=== PATIENT | female | born 1955 | race Caucasian/White ===

== ENCOUNTER → 2017-04-06 | Outpatient (CLI) | payer BC ==
--- NOTE | 2017-04-07 13:38 | MM ---
Reason for exam: screening (asymptomatic). Last mammogram was performed 1 year and 3 months ago. History: Patient is postmenopausal and is nulliparous. Family history of breast cancer in mother and breast cancer in sister. Excisional biopsy of the right breast, 2004. Physical Findings: A clinical breast exam by your physician is recommended on an annual basis and results should be correlated with mammographic findings. MG 3D Screening Mammo W/Cad Bilateral CC and MLO view(s) were taken. Prior study comparison: January 20, 2016, bilateral MG screening mammo w CAD. January 06, 2015, bilateral MG screening mammo w CAD. The breast tissue is heterogeneously dense. This may lower the sensitivity of mammography. Finding: There are typically benign round calcifications in both breasts. There is no discrete abnormality. ASSESSMENT: Benign, BI-RAD 2 RECOMMENDATION: Routine screening mammogram of both breasts in 1 year.
== END | disposition home or self-care (01) ==
LOC: RADMAMWWP 10:08
PROVIDERS: ATTEND Family Medicine
DX: Z12.31 Encounter for screening mammogram for malignant neoplasm of breast (principal)
CPT/HCPCS: 77063; G0202

== ENCOUNTER → 2017-12-18 | Outpatient (CLI) | payer BC ==
--- NOTE | 2017-12-18 20:05 | US ---
EXAMINATION TYPE: US thyroid st tissue head/neck DATE OF EXAM: 12/18/2017 COMPARISON: NONE CLINICAL HISTORY: 62-year-old female E03.9 Hypothyroidism. Patient on thyroid meds, patient states sh e had goiter removed in 1969 and she is unsure how much thyroid tissue is left. TECHNIQUE: Multiple sonographic images of the thyroid gland are obtained. FINDINGS: Right Lobe: appears surgically absent Left Lobe: Small measuring 2.4 x 0.5 x 0.9 cm Overall Parenchyma: heterogeneous Isthmus Thickness: 0.2 cm There is no discrete nodule seen. Bilateral neck scanned, no evidence of lymphadenopathy. IMPRESSION: Status post right thyroidectomy. The residual left lobe is small. No discrete nodule.
== END | disposition home or self-care (01) ==
LOC: RADUSWWP 15:29
PROVIDERS: ATTEND Family Medicine
DX: E03.9 Hypothyroidism, unspecified (principal); Z98.890 Other specified postprocedural states
CPT/HCPCS: 76536

== ENCOUNTER → 2018-06-28 | Outpatient (CLI) | payer MEDICARE ==
--- NOTE | 2018-06-29 11:40 | MM ---
Reason for exam: screening (asymptomatic). Last mammogram was performed 1 year and 3 months ago. History: Patient is postmenopausal and is nulliparous. Family history of breast cancer in mother and breast cancer in sister. Excisional biopsy of the right breast, 2004. Physical Findings: A clinical breast exam by your physician is recommended on an annual basis and results should be correlated with mammographic findings. MG 3D Screening Mammo W/Cad Bilateral CC and MLO view(s) were taken. Prior study comparison: April 06, 2017, bilateral MG 3d screening mammo w/cad. January 20, 2016, bilateral MG screening mammo w CAD. The breast tissue is heterogeneously dense. This may lower the sensitivity of mammography. There are benign appearing round calcifications bilaterally. There is no discrete abnormality. ASSESSMENT: Benign, BI-RAD 2 RECOMMENDATION: Routine screening mammogram of both breasts in 1 year.
== END | disposition home or self-care (01) ==
LOC: RADMAMWWP 11:48
PROVIDERS: ATTEND Family Medicine
DX: Z12.31 Encounter for screening mammogram for malignant neoplasm of breast (principal)
CPT/HCPCS: 77063; 77067

== ENCOUNTER → 2019-07-30 | Outpatient (CLI) | payer MEDICARE ==
--- NOTE | 2019-07-31 11:10 | MM ---
Reason for exam: screening (asymptomatic). Last mammogram was performed 1 year and 1 month ago. History: Patient is postmenopausal and is nulliparous. Family history of breast cancer in mother and breast cancer in sister. Excisional biopsy of the right breast, 2004. Physical Findings: A clinical breast exam by your physician is recommended on an annual basis and results should be correlated with mammographic findings. MG 3D Screening Mammo W/Cad Bilateral CC and MLO view(s) were taken. Prior study comparison: June 28, 2018, bilateral MG 3d screening mammo w/cad. April 06, 2017, bilateral MG 3d screening mammo w/cad. The breast tissue is heterogeneously dense. This may lower the sensitivity of mammography. There are benign appearing round calcifications bilaterally. There is no discrete abnormality. ASSESSMENT: Benign, BI-RAD 2 RECOMMENDATION: Routine screening mammogram of both breasts in 1 year.
== END | disposition home or self-care (01) ==
LOC: RADMAMWWP 07:04
PROVIDERS: ATTEND Family Medicine
DX: Z12.31 Encounter for screening mammogram for malignant neoplasm of breast (principal)
CPT/HCPCS: 77063; 77067

== ENCOUNTER → 2019-11-21 | Outpatient (CLI) | payer MEDICARE ==
--- NOTE | 2019-11-21 11:56 | USB ---
Reason for exam: clinical finding. History: Patient is postmenopausal and is nulliparous. Family history of breast cancer in mother and breast cancer in sister. Excisional biopsy of the right breast, 2004. Indicated problem(s): pain in the right breast. Physical Findings: Nurse Summary: all soft, nodular, movable, bilateral tenderness posterior nipples (nurse ts). US Breast RT Right complete breast ultrasound includes all four quadrants, the retroareolar region and axilla. Finding demonstrates a 7mm oval lymph node at the axilla, benign, non-enlarged. These results were verbally communicated with the patient and result sheet given to the patient on 11/21/19. ASSESSMENT: Benign, BI-RAD 2 RECOMMENDATION: Return to routine screening mammogram schedule for both breasts.
== END | disposition home or self-care (01) ==
LOC: RADUSWWP 10:04
PROVIDERS: ATTEND Nurse Practitioner Adult Health
DX: N64.4 Mastodynia (principal)

== ENCOUNTER → 2020-03-18 | Outpatient (CLI) | payer MEDICARE ==
--- NOTE | 2020-03-19 15:50 | ECHOF ---
Referral Reason:R06.00 Dyspnea MEASUREMENTS -------- HEIGHT: 172.7 cm WEIGHT: 95.3 kg BP: IVSd: 1.6 cm (0.6 - 1.1) LVIDd: 4.2 cm (3.9 - 5.3) LVPWd: 1.6 cm (0.6 - 1.1) IVSs: 2.3 cm LVIDs: 3.5 cm LVPWs: 1.5 cm LA Diam: 4.7 cm (2.7 - 3.8) RVIDd: 3.4 cm (< 3.3) Ao Diam: 3.4 cm (2.0 - 3.7) AV Cusp: 2.5 cm (1.5 - 2.6) EPSS: 0.5 cm RAP: 5.00 mmHg RVSP: 32.30 mmHg MV EF SLOPE: 88.07 mm/s (70 - 150) MV EXCURSION: 21.17 mm (> 18.000) FINDINGS -------- Atrial fibrillation. This was a technically difficult study with suboptimal views. The left ventricular size is normal. There is moderate concentric left ventricular hypertrophy. O verall left ventricular systolic function is normal with, an EF between 60 - 65 %. The right ventricle is mildly enlarged. The global wall thickness of the right ventricle is moderat ann-marie enlarged. The left atrium is markedly dilated. The right atrium was not well visualized. Interatrial and interventricular septum intact. There is mild aortic valve sclerosis. There is trace to mild mitral regurgitation. Mild tricuspid regurgitation present. Right ventricular systolic pressure is normal at < 35 mmHg. The pulmonic valve was not well visualized. The aortic root size is normal. Normal inferior vena cava with normal inspiratory collapse consistent with estimated right atrial pre ssure of 5 mmHg. The inferior vena cava is mildly dilated. Echo free space indicative of a pericardial fat pad. There is no pericardial effusion. CONCLUSIONS -------- 1. Atrial fibrillation. 2. This was a technically difficult study with suboptimal views. 3. The left ventricular size is normal. 4. There is moderate concentric left ventricular hypertrophy. 5. Overall left ventricular systolic function is normal with, an EF between 60 - 65 %. 6. The right ventricle is mildly enlarged. 7. The global wall thickness of the right ventricle is moderately enlarged. 8. The left atrium is markedly dilated. 9. The right atrium was not well visualized. 10. Interatrial and interventricular septum intact. 11. There is mild aortic valve sclerosis. 12. There is trace to mild mitral regurgitation. 13. Mild tricuspid regurgitation present. 14. Right ventricular systolic pressure is normal at < 35 mmHg. 15. The pulmonic valve was not well visualized. 16. The aortic root size is normal. 17. Normal inferior vena cava with normal inspiratory collapse consistent with estimated right atrial pressure of 5 mmHg. 18. The inferior vena cava is mildly dilated. 19. Echo free space indicative of a pericardial fat pad. 20. There is no pericardial effusion. NUCLEAR TECHNOLOGIST: Lianet Ariza RDCS
== END | disposition home or self-care (01) ==
LOC: RADECHMAIN 15:38
PROVIDERS: ATTEND Family Medicine
DX: I48.91 Unspecified atrial fibrillation (principal); I08.3 Combined rheumatic disorders of mitral, aortic and tricuspid valves
CPT/HCPCS: 93306

== ENCOUNTER → 2020-04-06 | Outpatient (CLI) | payer MEDICARE ==
[~2020-04-06] MED LIST: AMINOPHYLLINE 500 MG/20 ML VIAL IV ONE; REGADENOSON 0.4 MG/5 ML SYRINGE IV ONE
--- NOTE | 2020-04-06 12:14 | NM ---
EXAMINATION TYPE: NM stress lexiscan cardiolite DATE OF EXAM: 04/06/2020 COMPARISON: NONE HISTORY: Shortness of breath TECHNIQUE: After the intravenous administration of 9.8 mCi Tc 99m Sestamibi - Cardiolite resting SPE CT images acquired 60 minutes post injection. The patient received 0.4mg Lexiscan, 24.3 mCi Tc 99m Sestamibi - Stress images obtained [address] injection FINDINGS: Review of stress and rest SPECT images demonstrates fixed defect involving the anterior and anterosep brianna wall of the myocardium.. Gated analysis shows normal wall motion with an estimated left ventric ular ejection fraction of 74 %. IMPRESSION: 1. Fixed defect involving the anterior and anteroseptal myocardium correlate for previous myocardial infarction.
--- NOTE | 2020-04-06 12:38 | EST ---
EXERCISE STRESS AGE: 65 SEX: F HT: 5'8" WT: 205 lbs. PROTOCOL: Lexiscan Cardiolite. STAGE: DURATION OF EXERCISE: HEART RATE REST: 67 BLOOD PRESSURE REST: 111/85 MAXIMUM HEART RATE ACHIEVED: 105. MAXIMUM BLOOD PRESSURE: 116/71 85% MPHR: 130 100% MPHR: 153 METS: INDICATION: Chest pain. Heart rate 67, pressure is 111/85 mmHg. The baseline EKG showed what seems to be atrial fibrillation. 0.4 mg of Lexiscan over 15 seconds per protocol. Max heart rate was 105 beats per minute. Maximum pressure was 116/71 mmHg. Clinically the patient did not have no symptoms. The EKG did not show any significant ST or T-wave abnormalities concerning for ischemia. CONCLUSION: 1. Nondiagnostic electrocardiogram stress testing in response to Lexiscan. 2. Please follow up on the Cardiolite report on a separate report from Radiology Department. MMODL / IJN: [id number] /
== END | disposition home or self-care (01) ==
LOC: RADNMMAIN 08:03
PROVIDERS: ATTEND Nurse Practitioner Adult Health
DX: R06.00 Dyspnea, unspecified (principal)
CPT/HCPCS: 93017; 78452; A9500; J2785

== ENCOUNTER 2020-11-11 11:51 | Inpatient (IN) | payer MEDICARE ==
--- NOTE | 2020-11-11 12:24 | ED ---
General Adult HPI - General Chief complaint: Psychiatric Symptoms Stated complaint: Mental Health Time Seen by Provider: 11/11/20 12:00 Source: patient, EMS, RN notes reviewed, old records reviewed Mode of arrival: EMS Limitations: no limitations - History of Present Illness Initial comments: This is a 65-year-old female presents emergency department stating that since Monday she's been having more more thoughts of suicide and she was contemplating taking all of her medicine today so she decided to come in and get help. Patient states she's been relatively since September and it was increased about a month later to double the amount she thinks that some of that is part of the problem. Patient states that she has never attempted suicide in the past. Patient states no particular event seems to make her more depressed she states that she recently sold her house and is now living in a rented place so she doesn't have anything to do all day and that is making her more stress. Patient denies fever chills or cough. Patient denies any chest pain or difficulty breathing shortest breath. Patient denies any abdominal pain patient denies nausea vomiting diarrhea. - Related Data Home Medications Medication Instructions Recorded Confirmed ALPRAZolam [Xanax] 0.5 mg PO DAILY PRN 07/02/15 11/11/20 Pantoprazole Sodium 40 mg PO DAILY 07/02/15 11/11/20 Apixaban [Eliquis] 5 mg PO BID 11/11/20 11/11/20 Atorvastatin [Lipitor] 20 mg PO DAILY 11/11/20 11/11/20 Diltiazem Cd [Cardizem Cd] 120 mg PO DAILY 11/11/20 11/11/20 Levothyroxine Sodium 150 mcg PO DAILY 11/11/20 11/11/20 Lurasidone [Latuda] 80 mg PO DAILY 11/11/20 11/11/20 Metoprolol Succinate (ER) [Toprol 25 mg PO DAILY 11/11/20 11/11/20 Xl] Metoprolol Succinate [Toprol XL] 50 mg PO DAILY 11/11/20 11/11/20 Triamterene-Hctz 37.5-25Mg 1 tab PO DAILY 11/11/20 11/11/20 [Maxzide 37.5-25] rOPINIRole HCL [Requip] 0.25 mg PO HS 11/11/20 11/11/20 Allergies Allergy/AdvReac Type Severity Reaction Status Date / Time No Known Allergies Allergy Verified 11/11/20 12:46 Review of Systems ROS Statement: Those systems with pertinent positive or pertinent negative responses have been documented in the HPI. ROS Other: All systems not noted in ROS Statement are negative. Past Medical History Past Medical History: GERD/Reflux, Hyperlipidemia, Hypertension, Osteoarthritis (OA), Thyroid Disorder Additional Past Medical History / Comment(s): ENLARGED HEART, MURMUR, PALPITATIONS,VARICOSE VEINS, History of Any Multi-Drug Resistant Organisms: None Reported Additional Past Surgical History / Comment(s): thyroid goiter, MANIPULATION LT SHOULDER, D&C 22 YEARS AGO Past Anesthesia/Blood Transfusion Reactions: Postoperative Nausea & Vomiting (PONV) Additional Past Anesthesia/Blood Transfusion Reaction / Comment(s): CLAUSTERPHOBIA Past Psychological History: Anxiety, Depression Smoking Status: Former smoker Past Alcohol Use History: None Reported Past Drug Use History: Prescription Drug Abuse - Past Family History Father Family Medical History: Cancer, COPD Mother Family Medical History: Cancer Additional Family Medical History / Comment(s): BREAST General Exam - General Exam Comments Initial Comments: GENERAL: Patient is well-developed and well-nourished. Patient is nontoxic and well- hydrated and is in mild distress. ENT: Neck is soft and supple. No significant lymphadenopathy is noted. Oropharynx is clear. Moist mucous membranes. Neck has full range of motion without eliciting any pain. EYES: The sclera were anicteric and conjunctiva were pink and moist. Extraocular movements were intact and pupils were equal round and reactive to light. Eyelids were unremarkable. PULMONARY: Unlabored respirations. Good breath sounds bilaterally. No audible rales rhonchi or wheezing was noted. CARDIOVASCULAR: There is a regular rate and rhythm without any murmurs gallops or rubs. ABDOMEN: Soft and nontender with normal bowel sounds. SKIN: Skin is clear with no lesions or rashes and otherwise unremarkable. NEUROLOGIC: Patient is alert and oriented x3. Cranial nerves II through XII are grossly intact. Motor and sensory are also intact. Normal speech, volume and content. Symmetrical smile. MUSCULOSKELETAL: Normal extremities with adequate strength and full range of motion. LYMPHATICS: No significant lymphadenopathy is noted PSYCHIATRIC: She states she suicidal. Limitations: no limitations Course Vital Signs 11/11/20 11:57 Temperature 98 F Pulse Rate 78 Respiratory 18 Rate Blood Pressure 137/88 O2 Sat by Pulse 96 Oximetry Medical Decision Making - Medical Decision Making EPS evaluated the patient and determined the patient needed to be admitted. - Lab Data Lab Results 11/11/20 Range/Units 12:23 Urine Opiates Screen Not Detected (NotDetected) Ur Oxycodone Screen Not Detected (NotDetected) Urine Methadone Screen Not Detected (NotDetected) Ur Propoxyphene Screen Not Detected (NotDetected) Ur Barbiturates Screen Not Detected (NotDetected) U Tricyclic Antidepress Not Detected (NotDetected) Ur Phencyclidine Scrn Not Detected (NotDetected) Ur Amphetamines Screen Not Detected (NotDetected) U Methamphetamines Scrn Not Detected (NotDetected) U Benzodiazepines Scrn Not Detected (NotDetected) Urine Cocaine Screen Not Detected (NotDetected) U Marijuana (THC) Screen Detected H (NotDetected) Disposition Clinical Impression: Depression, Suicidal ideation Disposition: ADMITTED IP TO THIS HOSP Referrals: Antwon Duff MD [Primary Care Provider] - 1-2 days Time of Disposition: 14:37
[2020-11-11 12:50] LABS: Amphetamine Screen,Urine Not Detected (NotDetected); Barbiturate Screen,Urine Not Detected (NotDetected); Benzodiazepines Screen,Urine Not Detected (NotDetected); Cocaine Screen,Urine Not Detected (NotDetected); Methadone Screen, Urine Not Detected (NotDetected); Opiate Screen,Urine Not Detected (NotDetected); Oxycodone Screen, Urine Not Detected (NotDetected); Phencyclidine Screen,Urine Not Detected (NotDetected); Tricyclic Antidepressant,Urine Not Detected (NotDetected); Urn Cannabinoid Scrn Detected (NotDetected)
[2020-11-11] MEDS ORDERED: ONDANSETRON ODT 4 MG TAB PO STA (13:22)
[2020-11-11] MEDS ORDERED: MAGNESIUM HYDROXIDE 2,400 MG/10 ML CUP PO PRN (15:26)
[2020-11-11] MEDS ORDERED: LORazepam 1 MG TAB PO PRN (15:26)
[2020-11-11] MEDS ORDERED: HALOPERIDOL LACTATE 5 MG/ML 1 ML VIAL IM PRN (15:30)
[2020-11-11] MEDS: MAG HYDROX/AL HYDROX/SIMETH 30 ML CUP PO PRN (19:37)
[2020-11-11] MEDS: PANTOPRAZOLE 40 MG TABLET PO SCH (19:50)
--- NOTE | 2020-11-11 20:09 | P.CONS ---
History of Present Illness - Reason for Consult Consult date: 11/11/20 Medical management Requesting physician: Antwon Duff - Chief Complaint Suicidal thoughts - History of Present Illness Consultation: This is a pleasant 65-year-old patient of Dr. Antwon Duff. For last 56 days she's been having more positive suicide and contemplating taking all of her medications and decided to come to the ER to get some help. She has been having bouts of more severe depression. Chronic stable medical conditions include cardiac hypertension hyperlipidemia osteophyte arthritis hypothyroid varicose veins.. Does not sleep well. Occasional constipation. No fever no chills. No respiratory symptoms. Review of systems: GEN.: None EYES: None HEENT: None NECK: None RESPIRATORY: None CARDIOVASCULAR: None GASTROINTESTINAL: Occasional constipation GENITOURINARY: None MUSCULOSKELETAL: None LYMPHATICS: None HEMATOLOGICAL: None PSYCHIATRY: Anxiety depression NEUROLOGICAL: Insomnia Past medical history to include: GERD, hypertension, hyperlipidemia, osteophyte is, hypothyroid, varicose veins anxiety depression Social history: Lives with . No alcohol. She has been eating THC gummies about 3 times a week. Physical examination: VITAL SIGNS: 98.1, 92, 18, 108/81, 99% room air GENERAL: BMI 32.3, sitting up in a chair, comfortable. EYES: Pupils equal. Conjunctiva normal. HEENT: External appearance of nose and ears normal, oral cavity grossly normal. NECK: JVD not raised; masses not palpable. HEART: First and second heart sounds are normal; no edema. LUNGS: Respiratory rate normal; clear to auscultation. ABDOMEN: Soft, nontender, liver spleen not palpable, no masses palpable. PSYCH: [Alert and oriented x3; mood and affect anxious l. NEUROLOGICAL: Cranial nerves grossly intact; no facial asymmetry, power and se nsation grossly intact. LYMPHATICS: No lymph nodes palpable in the axilla and neck INVESTIGATIONS, reviewed in the clinical context: Urine drug screen positive for marijuana. Coronavirus [PCR]-not detected Assessment: -Obesity BMI 32.3 -GERD -Essential hypertension -Hyperlipidemia -Primary osteoarthritis -Varicose veins -Major depression recurrent with acute episode -Insomnia secondary to multiple medical problems -Restless leg syndrome Plan: Home medications to be resumed. Including patient's eliquis. Hopefully with the new medications she'll receive from psychiatry to help her sleep better. Care was discussed with the patient questions answered. Patient should follow- up with family doctor per discharge. Thank you Dr. Armendariz Past Medical History Past Medical History: GERD/Reflux, Hyperlipidemia, Hypertension, Osteoarthritis (OA), Thyroid Disorder Additional Past Medical History / Comment(s): ENLARGED HEART, MURMUR, PALPITATIONS,VARICOSE VEINS, History of Any Multi-Drug Resistant Organisms: None Reported Additional Past Surgical History / Comment(s): thyroid goiter, MANIPULATION LT SHOULDER, D&C 22 YEARS AGO Past Anesthesia/Blood Transfusion Reactions: Postoperative Nausea & Vomiting (PONV) Additional Past Anesthesia/Blood Transfusion Reaction / Comm: CLAUSTERPHOBIA Past Psychological History: Anxiety, Depression Smoking Status: Former smoker Past Alcohol Use History: None Reported Past Drug Use History: Prescription Drug Abuse - Past Family History Father Family Medical History: Cancer, COPD Mother Family Medical History: Cancer Additional Family Medical History / Comment(s): BREAST Medications and Allergies Home Medications Medication Instructions Recorded Confirmed Type ALPRAZolam [Xanax] 0.5 mg PO DAILY PRN 07/02/15 11/11/20 History Pantoprazole Sodium 40 mg PO DAILY 07/02/15 11/11/20 History Apixaban [Eliquis] 5 mg PO BID 11/11/20 11/11/20 History Atorvastatin [Lipitor] 20 mg PO DAILY 11/11/20 11/11/20 History Diltiazem Cd [Cardizem Cd] 120 mg PO DAILY 11/11/20 11/11/20 History Levothyroxine Sodium 150 mcg PO DAILY 11/11/20 11/11/20 History Lurasidone [Latuda] 80 mg PO DAILY 11/11/20 11/11/20 History Metoprolol Succinate (ER) [Toprol 25 mg PO DAILY 11/11/20 11/11/20 History Xl] Metoprolol Succinate [Toprol XL] 50 mg PO DAILY 11/11/20 11/11/20 History Triamterene-Hctz 37.5-25Mg 1 tab PO DAILY 11/11/20 11/11/20 History [Maxzide 37.5-25] rOPINIRole HCL [Requip] 0.25 mg PO HS 11/11/20 11/11/20 History Allergies Allergy/AdvReac Type Severity Reaction Status Date / Time No Known Allergies Allergy Verified 11/11/20 12:46 Physical Exam Vitals: Vital Signs Temp Pulse Pulse Resp BP BP Pulse Ox 11/11/20 18:28 98.1 F 11/11/20 16:53 97.2 F L 92 18 108/81 11/11/20 16:14 97.8 F 79 18 99/72 99 11/11/20 11:57 98 F 78 18 137/88 96 Intake and Output 11/11/20 11/11/20 11/11/20 06:59 14:59 22:59 Other: Weight 90.718 kg 96.218 kg Results Labs: Abnormal Lab Results - Last 24 Hours (Table) 11/11/20 Range/Units 12:23 U Marijuana (THC) Screen Detected H (NotDetected)
[2020-11-11] MEDS: APIXABAN 5 MG TAB PO SCH (21:04)
[2020-11-12] MEDS: LEVOTHYROXINE 75 MCG TAB PO SCH (06:39)
[2020-11-12 06:57] VITALS: RESP 16
[2020-11-12] MEDS ORDERED: PANTOPRAZOLE 40 MG TABLET PO SCH (07:30)
[2020-11-12 07:43] LABS: Basophils # (A) 0.1 k/uL (0-0.2); Basophils % (A) 1 %; Eosinophils # (A) 0.3 k/uL (0-0.7); Eosinophils % (A) 3 %; HCT 45.5 % (34.0-46.0); HGB 15.6 gm/dL (11.4-16.0); Lymphocytes # (A) 2.2 k/uL (1.0-4.8); Lymphocytes % (A) 22 %; MCH 30.3 pg (25.0-35.0); MCHC 34.4 g/dL (31.0-37.0); MCV 88.1 fL (80.0-100.0); Mean Platelet Volume 7.8; Monocytes # (A) 0.9 k/uL (0-1.0); Monocytes % (A) 9 %; Neutrophils # (A) 6.5 k/uL (1.3-7.7); Neutrophils % (A) 64 %; Platelet Count 261 k/uL (150-450); RBC 5.16 m/uL (3.80-5.40); RDW 12.9 % (11.5-15.5); WBC 10.2 k/uL (3.8-10.6)
[2020-11-12] MEDS: METOPROLOL SUCCINATE (ER) 50 MG TAB.ER.24H PO SCH (07:55)
[2020-11-12] MEDS: ATORVASTATIN 20 MG TAB PO SCH (07:55)
[2020-11-12] MEDS: PANTOPRAZOLE 40 MG TABLET PO SCH (07:55)
[2020-11-12] MEDS: METOPROLOL SUCCINATE (ER) 25 MG TAB.ER.24H PO SCH (07:55)
[2020-11-12] MEDS: DILTIAZEM CD 120 MG CAP.ER.24H PO SCH (07:55)
[2020-11-12] MEDS: APIXABAN 5 MG TAB PO SCH ×2 (07:55→20:39)
[2020-11-12] MEDS: TRIAMTERENE-HCTZ 37.5-25MG 1 EACH TAB PO SCH (07:56)
[2020-11-12 08:07] LABS: Albumin 4.2 g/dL (3.5-5.0); Calcium 9.5 mg/dL (8.4-10.2); Potassium 4.4 mmol/L (3.5-5.1); Total Bilirubin 1.2 mg/dL (0.2-1.3)
[2020-11-12] MEDS ORDERED: SERTRALINE 50 MG TAB PO STA (11:08)
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
[2020-11-12] MEDS: MAG HYDROX/AL HYDROX/SIMETH 30 ML CUP PO PRN (14:32)
[2020-11-12 20:09] LABS: Hemoglobin A1C 5.8 % (4.0-6.0)
[2020-11-12] MEDS ORDERED: MIRTAZAPINE 15 MG TAB PO SCH (21:00)
[2020-11-12 21:44] LABS: Appearance,Urine Clear (Clear); Bilirubin,Urine Negative (Negative); Blood,Urine Negative (Negative); Color,Urine Yellow; Glucose,Urine (UA) Negative (Negative); Hyaline Casts,Urine 1 /lpf (0-2); Ketones,Urine Negative (Negative); Leukocyte Esterase,Urine Trace (Negative); Mucus,Urine Rare /hpf; Nitrite,Urine Negative (Negative); PH, Urine 5.5 (5.0-8.0); Protein,Urine Negative (Negative); RBC,Urine 1 /hpf (0-5); Specific Gravity,Urine 1.018 (1.001-1.035); Urobilinogen,Urine <2.0 mg/dL (<2.0); WBC,Urine 1 /hpf (0-5)
[2020-11-12] MEDS: ACETAMINOPHEN TAB 325 MG TAB PO PRN (23:24)
--- NOTE | 2020-11-12 23:56 | P.PN ---
Progress Note - Text Progress Note Date: 11/12/20 Patient lab work for thyroid function was noted. No induration of the present time. Patient have repeat thyroid function test done in about 4 weeks' time. Patient is clinically not hyperthyroid.
[2020-11-13 06:17] VITALS: BP 132/60; PULSE 70; TEMP 97.5
[2020-11-13] MEDS: LEVOTHYROXINE 75 MCG TAB PO SCH (06:19)
[2020-11-13] MEDS: PANTOPRAZOLE 40 MG TABLET PO SCH (07:47)
[2020-11-13] MEDS: APIXABAN 5 MG TAB PO SCH (07:48)
[2020-11-13] MEDS: METOPROLOL SUCCINATE (ER) 50 MG TAB.ER.24H PO SCH (07:48)
[2020-11-13] MEDS: ATORVASTATIN 20 MG TAB PO SCH (07:48)
[2020-11-13] MEDS: METOPROLOL SUCCINATE (ER) 25 MG TAB.ER.24H PO SCH (07:49)
[2020-11-13] MEDS: TRIAMTERENE-HCTZ 37.5-25MG 1 EACH TAB PO SCH (07:49)
[2020-11-13] MEDS: DILTIAZEM CD 120 MG CAP.ER.24H PO SCH (07:49)
[2020-11-13] MEDS ORDERED: SERTRALINE 50 MG TAB PO SCH (09:00)
[2020-11-13] MEDS: ACETAMINOPHEN TAB 325 MG TAB PO PRN (09:41)
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
== END 2020-11-13 10:38 | disposition home or self-care (01) | DRG 885 ==
LOC: EC 11:51 → 3MHU 15:20
PROVIDERS: ADMIT Psychiatry & Neurology Psychiatry; ATTEND Psychiatry & Neurology Psychiatry
DX: F33.2 Major depressive disorder, recurrent severe without psychotic features (principal); R45.851 Suicidal ideations; I11.9 Hypertensive heart disease without heart failure; F41.9 Anxiety disorder, unspecified; Z20.822 Contact with and (suspected) exposure to COVID-19; E78.5 Hyperlipidemia, unspecified; E03.9 Hypothyroidism, unspecified; E66.9 Obesity, unspecified; Z68.32 Body mass index [BMI] 32.0-32.9, adult; G25.81 Restless legs syndrome; G47.00 Insomnia, unspecified; K59.00 Constipation, unspecified; K21.9 Gastro-esophageal reflux disease without esophagitis; M19.91 Primary osteoarthritis, unspecified site; M81.0 Age-related osteoporosis without current pathological fracture; I83.90 Asymptomatic varicose veins of unspecified lower extremity; Z79.01 Long term (current) use of anticoagulants; Z79.890 Hormone replacement therapy; Z79.899 Other long term (current) drug therapy; Z87.891 Personal history of nicotine dependence; Z62.810 Personal history of physical and sexual abuse in childhood; Z87.39 Personal history of other diseases of the musculoskeletal system and connective tissue; Z82.5 Family history of asthma and other chronic lower respiratory diseases; Z80.3 Family history of malignant neoplasm of breast
CPT/HCPCS: 80053; 80061; 80306; 81001; 82075; 83036; 84439; 84443; 85025; 87635; 99285

== ENCOUNTER → 2021-01-26 | Outpatient (CLI) | payer MEDICARE ==
--- NOTE | 2021-01-28 10:47 | MM ---
Reason for exam: screening (asymptomatic). Last mammogram was performed 1 year and 6 months ago. History: Patient is postmenopausal and is nulliparous. Family history of breast cancer in mother and breast cancer in sister. Excisional biopsy of the right breast, 2004. Physical Findings: A clinical breast exam by your physician is recommended on an annual basis and results should be correlated with mammographic findings. MG 3D Screening Mammo W/Cad Bilateral CC and MLO view(s) were taken. Prior study comparison: July 30, 2019, bilateral MG 3d screening mammo w/cad. June 28, 2018, bilateral MG 3d screening mammo w/cad. There are scattered fibroglandular densities. Focal asymmetry right CC view. ASSESSMENT: Incomplete: need additional imaging evaluation, BI-RAD 0 RECOMMENDATION: Special view mammogram of the right breast. If lesion persists on supplemental views, image directed ultrasound is recommended. [facility] will attempt to contact patient to return for supplemental views and ultrasound if indicated.
== END | disposition home or self-care (01) ==
LOC: RADMAMWWP 11:24
PROVIDERS: ATTEND Family Medicine
DX: Z12.31 Encounter for screening mammogram for malignant neoplasm of breast (principal); Z80.3 Family history of malignant neoplasm of breast; Z78.0 Asymptomatic menopausal state
CPT/HCPCS: 77063; 77067

== ENCOUNTER → 2021-02-08 | Outpatient (CLI) | payer MEDICARE ==
--- NOTE | 2021-02-09 08:11 | MM ---
Reason for exam: additional evaluation requested from abnormal screening. Last mammogram was performed less than 1 month ago. History: Patient is postmenopausal and is nulliparous. Family history of breast cancer in mother and breast cancer in sister. Excisional biopsy of the right breast, 2004. Physical Findings: Nurse did not find any significant physical abnormalities on exam. MG 3D Work Up W/Cad RT CC and MLO view(s) were taken of the right breast. Prior study comparison: January 26, 2021, bilateral MG 3d screening mammo w/cad. July 30, 2019, bilateral MG 3d screening mammo w/cad. The breast tissue is heterogeneously dense. This may lower the sensitivity of mammography. There is no discrete abnormality including area of concern. No significant new findings when compared with previous films. These results were verbally communicated with the patient and result sheet given to the patient on 02/08/21. ASSESSMENT: Negative, BI-RAD 1 RECOMMENDATION: Return to routine screening mammogram schedule for both breasts.
== END | disposition home or self-care (01) ==
LOC: RADMAMWWP 15:00
PROVIDERS: ATTEND Family Medicine
DX: R92.2 Inconclusive mammogram (principal)
CPT/HCPCS: 77065; G0279; 77061

== ENCOUNTER → 2022-01-31 | Outpatient (CLI) | payer MEDICARE ==
--- NOTE | 2022-01-31 16:11 | CT ---
EXAMINATION TYPE: CT chest wo con DATE OF EXAM: 01/31/2022 INDICATION: pulmonary nodule CT DLP: 685.12 mGy.cm Automated Exposure Control for Dose Reduction was Utilized. TECHNIQUE AND CONTRAST: CT scan of the chest without IV contrast administration. COMPARISON: CT dated 07/06/2016 FINDINGS: Stable few left lower lobe lung nodules measuring up to 3 mm, consistent with benign nodules. No othe r definite lung nodule identified. Prominent interstitial lung markings most evident in the left lowe r lobe, probably related to chronic pulmonary congestion. Unremarkable lungs otherwise. Patent central airways. No pleural or pericardial effusion. Severe card iomegaly with markedly left atrial dilatation and suspected left ventricular apical chronic infarct/a neurysm, please correlate with echocardiographic results. Extensive coronary and to a lesser extent arterial atherosclerotic calcifications. The pulmonary trun k measures 4.1 cm suggestive of pulmonary hypertension. No pathologically enlarged lymph nodes in the chest. CT scan of the abdomen is dictated separately. Osteopenia. No aggressive bone lesion. IMPRESSION: Stable few left lower lobe lung nodules measuring up to 3 mm consistent with benign nodules. No new o r progressive lung nodule identified. Severe cardiomegaly and other incidental findings as detailed a shahnaz. CT scan of the abdomen is dictated separately.
--- NOTE | 2022-01-31 21:38 | CT ---
EXAMINATION TYPE: CT abdomen pelvis w con DATE OF EXAM: 01/31/2022 COMPARISON: CT dated 07/06/2016 HISTORY: splenic artery aneurysm CT DLP: 1565.91 mGycm Automated exposure control for dose reduction was used. TECHNIQUE: Helical acquisition of images was performed from the lung bases through the pelvis. CONTRAST: Performed with Oral Contrast and with IV Contrast, patient injected with 80ml mL of Isovue 300. FINDINGS: LUNG BASES: CT scan of the chest is dictated separately. LIVER/GB: No definite hepatic focal lesion. Densities within the gallbladder likely representing chol elithiasis without convincing evidence of acute cholecystitis. PANCREAS: Fatty infiltration. SPLEEN: Unremarkable spleen. Redemonstration of the previously seen marginally calcified splenic miguel a ry aneurysm measuring up to 2.2 cm, stable. The more distal noncalcified aneurysm is also stable mabel uring 14 mm. ADRENALS: No significant abnormality is seen. KIDNEYS: Nonvisualized right kidney likely related to previous right nephrectomy. Unremarkable left k idney. FREE AIR: No free air is visualized. RETROPERITONEAL ADENOPATHY: None visualized REPRODUCTIVE ORGANS: No gross uterine or adnexal mass. URINARY BLADDER: No significant abnormality is seen. PELVIC ADENOPATHY: Subcentimeter bilateral inguinal, external iliac and common iliac lymph nodes, no nspecific. OSSEOUS STRUCTURES: Degenerative changes of the lower lumbar spine. BOWEL: Small sliding hiatal hernia. Mild nonspecific wall thickening of the gastric fundus. Unremark able duodenum and small bowel. Severe diverticulosis of the sigmoid colon with significant wall thick ening. Other scattered colonic diverticulosis without evidence of acute diverticulitis. Recommend cor relation with colonoscopy results. Stable prominent ileocolic lymph nodes. OTHER: Arterial atherosclerotic calcifications. Collateral vessels are seen in the left retroperitone um likely secondary to stenosis of the medial aspect of the left renal vein likely secondary to a christine gical clip at that location. No sizable ascites. Fat-containing umbilical hernia. IMPRESSION: 1. Stable 2 splenic artery aneurysms as described above. 2. Unremarkable right nephrectomy bed. 3. Severe diverticulosis of the sigmoid colon with wall thickening, please correlate with colonoscopy results. 4. Prominent subcentimeter bilateral inguinal and iliac lymph nodes, slightly more prominent compared to the previous CT scan, attention on follow-up. Other incidental findings as detailed above.
== END | disposition home or self-care (01) ==
LOC: RADCTMAIN 13:26
PROVIDERS: ATTEND Family Medicine
DX: R91.8 Other nonspecific abnormal finding of lung field (principal); I72.8 Aneurysm of other specified arteries; I51.7 Cardiomegaly; K57.30 Diverticulosis of large intestine without perforation or abscess without bleeding; Z90.5 Acquired absence of kidney
CPT/HCPCS: 82565; 84520; 71250; 74177; 36415; Q9967

== ENCOUNTER → 2022-02-15 | Outpatient (CLI) | payer MEDICARE ==
--- NOTE | 2022-02-16 11:37 | MM ---
Reason for exam: screening (asymptomatic). Last mammogram was performed 1 year ago. History: Patient is postmenopausal and is nulliparous. Family history of breast cancer in mother and breast cancer in sister. Excisional biopsy of the right breast, 2004. Physical Findings: A clinical breast exam by your physician is recommended on an annual basis and results should be correlated with mammographic findings. MG 3D Screening Mammo W/Cad Bilateral CC and MLO view(s) were taken. Prior study comparison: February 08, 2021, right breast MG 3d work up w/cad RT. January 26, 2021, bilateral MG 3d screening mammo w/cad. The breast tissue is heterogeneously dense. This may lower the sensitivity of mammography. Stable benign calcifications. There is no discrete abnormality. No significant changes when compared with prior studies. ASSESSMENT: Benign, BI-RAD 2 RECOMMENDATION: Routine screening mammogram of both breasts in 1 year.
== END | disposition home or self-care (01) ==
LOC: RADMAMWWP 10:59
PROVIDERS: ATTEND Family Medicine
DX: Z12.31 Encounter for screening mammogram for malignant neoplasm of breast (principal); Z78.0 Asymptomatic menopausal state; Z80.3 Family history of malignant neoplasm of breast
CPT/HCPCS: 77063; 77067

== ENCOUNTER → 2022-02-18 | Outpatient (CLI) | payer MEDICARE ==
--- NOTE | 2022-02-18 15:04 | CA ---
Transthoracic Echo Report Name: Shae Kirk Age: 66 Gender: F : 1955 Exam Date: 02/18/2022 14:06 Exam Location: [facility] Ht (in): 68 Wt (lb): 237 Ordering Physician: Antwon Duff MD Attending/Referring Phys: Emelia Buck [facility] Development Specialist Sneha Her RDCS Procedure CPT: Indications: I51.7 Cardiomegaly Cardiac Hx: Technical Quality: Technically difficult study Contrast 1: Total Dose (mL): Contrast 2: Lumason Total Dose (mL): 5 MEASUREMENTS (Male / Female) Normal Values 2D ECHO LV Diastolic Diameter PLAX 4.4 cm 4.2 - 5.9 / 3.9 - 5.3 cm LV Systolic Diameter PLAX 3.9 cm IVS Diastolic Thickness 1.1 cm 0.6 - 1.0 / 0.6 - 0.9 cm LVPW Diastolic Thickness 1.6 cm 0.6 - 1.0 / 0.6 - 0.9 cm LV Relative Wall Thickness 0.6 RV Internal Dim ED PLAX 4.0 cm LA Systolic Diameter LX 5.3 cm 3.0 - 4.0 / 2.7 - 3.8 cm M-MODE Aortic Root Diameter MM 3.6 cm LA Systolic Diameter MM 6.1 cm LA Ao Ratio MM 1.7 MV E Point Septal Separation 0.3 cm AV Cusp Separation MM 2.3 cm DOPPLER MV Area PHT 3.3 cm??? Mitral E Point Velocity 59.1 cm/s Mitral A Point Velocity 80.5 cm/s Mitral E to A Ratio 0.7 MV Deceleration Time 227.8 ms FINDINGS Left Ventricle Left ventricle not well visualized. Right Ventricle Severe right ventricular dilatation. Right Atrium Right atrium not well visualized. Left Atrium Severe left atrial dilatation. Mitral Valve Mitral valve not well visualized. Aortic Valve Aortic valve not well visualized. Tricuspid Valve Tricuspid valve not well visualized. Tricuspid valve not well visualized. Pulmonic Valve Pulmonic valve not well visualized. Pericardium Echo free space anterior to the right ventricle likely represents a fat pad. Aorta Aortic root and proximal ascending aorta not well visualized. CONCLUSIONS Technically difficult study for interpretation The ejection fraction is hard to estimate Poorly visualized intracardiac valves No evidence of pericardial effusion Previewed by: Dr. Dipesh Skinner MD (Electronically Signed) Final Date: 18 Feb 2022 15:03
== END | disposition home or self-care (01) ==
LOC: RADECHMAIN 13:55
PROVIDERS: ATTEND Family Medicine
DX: I51.7 Cardiomegaly (principal)
CPT/HCPCS: C8929; Q9950; 93306

== ENCOUNTER 2022-03-23 08:17 | Day surgery (SDC) | payer MEDICARE ==
[~2022-03-23 08:17] MED LIST changes: -AMINOPHYLLINE 500 MG/20 ML VIAL IV ONE; +LACTATED RINGERS 1,000 ML IV SCH; +LIDOCAINE 1% (10MG/ML) FOR IV START INTRADERMA PRN; -REGADENOSON 0.4 MG/5 ML SYRINGE IV ONE
[2022-03-23 09:09] VITALS: RESP 16; TEMP 97.1
[2022-03-23 09:25] LABS: Glucose,Whole Blood 118 mg/dL (75-99)
[2022-03-23] MEDS ORDERED: GLYCOPYRROLATE 0.2 MG/ML 2 ML VIAL ONE (09:45)
[2022-03-23] MEDS ORDERED: PROPOFOL 10 MG/ML 20 ML VIAL IV ONE (09:45)
--- NOTE | 2022-03-23 10:05 | P.PCN ---
Date of Procedure: 03/23/22 Procedure(s) Performed: BRIEF HISTORY: Patient is a 67-year-old pleasant female scheduled for an elective colonoscopy as a part of screening for colorectal neoplasia. Her last colonoscopy was 10 years ago. PROCEDURE PERFORMED: Colonoscopy. PREOPERATIVE DIAGNOSIS: reening for colon cancer. IV sedation per Anesthesia. PROCEDURE: After informed consent was obtained, the patient, was brought into the endoscopy unit. IV sedation was administered by Anesthesia under continuous monitoring. Digital rectal examination was normal. Initially the Olympus CF-160 flexible video colonoscope was then inserted in the rectum, and could not be advanced beyond the sigmoid colon because of acute ventilation. The scope was removed and a pediatric colonoscope was then inserted in the rectum and gradually gradually advanced into the cecum with [id number] difficulty. Careful examination was performed as the scope was gradually being withdrawn. Ileocecal valve and the appendiceal orifice were visualized and appeared normal. Prep was excellent. Mucosa of the cecum, ascending colon, transverse colon, descending colon, sigmoid colon, and rectum appeared normal. Moderate sigmoid diverticulosis. Retroflexion was performed in the rectum and small internal hemorrhoids were seen. The patient tolerated the procedure well. IMPRESSION: Normal-appearing colon from rectum to cecum with no evidence of colorectal neoplasia . Moderate sigmoid diverticulosis. Small internal hemorrhoids RECOMMENDATIONS: Findings of this examination were discussed with the patient is a family.. She was advised to have a repeat screening colonoscopy in 10 years.
[2022-03-23 10:44] VITALS: BP 113/79; PULSE 82
== END 2022-03-23 11:00 | disposition home or self-care (01) ==
LOC: ORWHC2ENDO 08:17
PROVIDERS: ATTEND Internal Medicine Gastroenterology
DX: Z12.11 Encounter for screening for malignant neoplasm of colon (principal); K57.30 Diverticulosis of large intestine without perforation or abscess without bleeding; K64.8 Other hemorrhoids; I10 Essential (primary) hypertension; E78.5 Hyperlipidemia, unspecified; I48.91 Unspecified atrial fibrillation; G47.33 Obstructive sleep apnea (adult) (pediatric); E11.9 Type 2 diabetes mellitus without complications; M19.90 Unspecified osteoarthritis, unspecified site; F41.9 Anxiety disorder, unspecified; F32.A Depression, unspecified; Z79.899 Other long term (current) drug therapy; Z79.84 Long term (current) use of oral hypoglycemic drugs
CPT/HCPCS: J2704; G0121

== ENCOUNTER → 2023-02-22 | Outpatient (CLI) | payer MEDICARE ==
--- NOTE | 2023-02-22 11:14 | MM ---
Reason for Exam: Additional evaluation requested from abnormal screening. Last screening mammogram was performed less than 1 month ago. Patient History: Menarche at age 12. Patient has no children. Postmenopausal. 2004, Excisional Biopsy on the Right side. Sister had breast cancer. Mother had breast cancer. Risk Values: Maryjane 5 year model risk: 6.4%. NCI Lifetime model risk: 18.5%. Prior Study Comparison: 02/08/2021 Right Diagnostic Mammogram, [facility]. 02/15/2022 Bilateral Screening Mammogram, [facility]. 02/17/2023 Bilateral MG 3D screening mammo w/cad, [facility]. Tissue Density: Left: There are scattered fibroglandular densities. Findings: Analyzed By CAD. No new suspicious mass within the left breast. Grouped coarse calcifications within the upper outer left breast posteriorly appears similar to prior examination in 2019. No new suspicious group of microcalcifications. Overall Assessment: Benign, BI-RAD 2 Management: Screening Mammogram of both breasts in 1 year. A clinical breast exam by your physician is recommended on an annual basis and results should be correlated with mammographic findings. This exam should not preclude additional follow-up of suspicious palpable abnormalities. Results were given to the patient verbally at the time of exam. Electronically signed and approved by: Lee Green D.O.
== END | disposition home or self-care (01) ==
LOC: RADMAMWWP 10:21
PROVIDERS: ATTEND Family Medicine
DX: R92.8 Other abnormal and inconclusive findings on diagnostic imaging of breast (principal); Z78.0 Asymptomatic menopausal state; Z80.3 Family history of malignant neoplasm of breast
CPT/HCPCS: 77065; G0279; 77061

== ENCOUNTER → 2023-07-04 | Outpatient (CLI) | payer MEDICARE ==
--- NOTE | 2023-07-05 22:11 | MR ---
EXAMINATION TYPE: MR angio neck wo/w con DATE OF EXAM: 07/04/2023 COMPARISON: [facility] [place] 09/11/2015 HISTORY: Aneurysm of right internal carotid artery, cerebral aneurysm nonruptured. CONTRAST: None TECHNIQUE: Multiplanar multiecho imaging on a 3.0 Manju magnet is performed through the neck vessels. 3-D vjij-[id number] imaging is performed. Source images are reviewed on the computer in the axial pl ane. Reconstructed images rotating on the computer are reviewed. FINDINGS: Common carotid arteries bifurcate normally into internal and external carotid arteries. No flow gap i s evident. No significant flow-limiting stenosis is evident. Internal carotid arteries and vertebral arteries are patent to the skull base. Note is made of some slab artifact at the thoracic inlet. On reconstructed coronal plane images there appears to be some dolichoectasia of the basilar artery. The internal carotid arteries above the carotid siphon appear normal with the bifurcation into A1 and M1 segments. Anterior communicating artery appears patent. No obvious aneurysm is identified. [place] is limited evaluation on CT angiogram of neck study. Closer evaluation of the [place] llis would be of benefit, dedicated imaging would be recommended. The ectasia of the distal internal carotid artery and the white neck aneurysm previously identified i s not evident on this examination. Dedicated MRA of the [place] be required for better evalu ation of this region. IMPRESSION: 1. No significant flow-limiting stenosis bilateral carotid bifurcations. 2. 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 [place] is not completely e valuated on this examination but could be performed if additional evaluation would be of benefit. Pre vious distal internal carotid artery aneurysm is not identified on this exam but could be evaluated w ith M[facility] [place] [facility] [place].
== END | disposition home or self-care (01) ==
LOC: RADMRIMAIN 10:38
PROVIDERS: ATTEND Family Medicine
DX: I67.1 Cerebral aneurysm, nonruptured (principal)
CPT/HCPCS: 70549; A9585

== ENCOUNTER → 2023-07-31 | Outpatient (CLI) | payer MEDICARE ==
--- NOTE | 2023-08-07 12:56 | MR ---
EXAMINATION TYPE: MR angio head wo con DATE OF EXAM: 07/31/2023 COMPARISON: 07/04/2023, 09/11/2015 HISTORY: 68-year-old female I6 7.1, Cerebral aneurysm, nonruptured. TECHNIQUE: High-resolution 3-D [id number] imaging of the [place]. Rotational 3-D reconst ructions generated on a dedicated independent workstation. FINDINGS: Redemonstrated dolichoectasia of the vertebrobasilar system. The left vertebral artery is dominant wi th a caliber of 6 mm, unchanged. Basilar artery has a caliber of 6 mm, unchanged. Additional large caliber to the bilateral internal carotid arteries with calibers up to 6 mm. Redemonstrated large saccular aneurysm cavernous segment right ICA projecting medially measuring 9 x 7 mm, unchanged. Remainder of the anterior circulation is patent. There is interval development of a severe focal stenosis at the P1/P2 junction of the right posterior cerebral artery, axial image 119 and rotational reconstructions series 303 image 9. Diminished flow related enhancement within the segment 3 and more distal bilateral posterior cerebral arteries. IMPRESSION: 1. Redemonstrated dolichoectasia of the vertebrobasilar system and internal carotid arteries. Overall caliber up to 6 mm is unchanged. 2. Redemonstrated large 9 x 7 mm saccular aneurysm cavernous segment right ICA projecting medially. U nchanged from 2014. 3. As compared to 2015, there is interval development of a severe focal stenosis at the P1/P2 junctio n of the right CAR [employer]ER. Also, interval diminished flow related enhancement within the segment 3 and more distal segments of the bilateral logistics specialist. Further evaluation as clinically indicated such as with conven tional angiogram or CT angiography.
== END | disposition home or self-care (01) ==
LOC: RADMRIMAIN 15:22
PROVIDERS: ATTEND Family Medicine
DX: I67.1 Cerebral aneurysm, nonruptured (principal)
CPT/HCPCS: 70544

== ENCOUNTER → 2024-03-20 | Outpatient (CLI) | payer MEDICARE ==
--- NOTE | 2024-03-21 13:32 | MM ---
Reason for Exam: Screening (asymptomatic). Last mammogram was performed 1 year(s) and 1 month(s) ago. Patient History: Menarche at age 12. Patient has no children. Postmenopausal. 2004, Excisional Biopsy on the Right side. Sister had breast cancer. Mother had breast cancer. Risk Values: Maryjane 5 year model risk: 6.5%. NCI Lifetime model risk: 16.9%. Prior Study Comparison: 04/06/2017 Bilateral Screening Mammogram, [facility]. 06/28/2018 Bilateral Screening Mammogram, [facility]. 07/30/2019 Bilateral Screening Mammogram, [facility]. 01/26/2021 Bilateral Screening Mammogram, [facility]. 02/08/2021 Right Diagnostic Mammogram, [facility]. 02/15/2022 Bilateral Screening Mammogram, [facility]. 02/17/2023 Bilateral MG 3D screening mammo w/cad, [facility]. 02/22/2023 Left MG 3D work up w/cad LT, [facility]. Tissue Density: There are scattered areas of fibroglandular density. Findings: Analyzed By CAD. Right breast: There is no suspicious group of microcalcifications or new suspicious mass. Left breast: There is no suspicious group of microcalcifications or new suspicious mass. Overall Assessment: Negative, BI-RAD 1 Management: Screening Mammogram of both breasts in [address] [facility] will attempt to contact patient to return for supplemental views and ultrasound if indicated. Patient should continue monthly self-breast exams. A clinical breast exam by your physician is recommended on an annual basis. This exam should not preclude additional follow-up of suspicious palpable abnormalities. Note on Maryjane scores and lifetime risk: 1. A Maryjane score greater than 3% is considered moderate risk. If this is the case, consider specialist referral to assess eligibility for a risk reducing agent. 2. If overall lifetime risk for the development of breast cancer is 20% or higher, the patient may qualify for future screening with alternating mammogram and breast MRI. Electronically signed and approved by: Alcides Alfred DO
== END | disposition home or self-care (01) ==
LOC: RADMAMWWP 12:00
PROVIDERS: ATTEND Family Medicine
DX: Z12.31 Encounter for screening mammogram for malignant neoplasm of breast (principal); Z78.0 Asymptomatic menopausal state; Z80.3 Family history of malignant neoplasm of breast
CPT/HCPCS: 77063; 77067

== ENCOUNTER → 2025-04-23 | Outpatient (CLI) | payer MEDICARE ==
--- NOTE | 2025-04-23 11:43 | MM ---
Reason for Exam: Screening (asymptomatic). Last mammogram was performed 1 year(s) and 1 month(s) ago. Patient History: Menarche at age 12. Patient has no children. Postmenopausal. 2004, Excisional Biopsy on the Right side. Sister had breast cancer, age 50. Mother had breast cancer, age 60. Risk Values: Maryjane 5 year model risk: 6.5%. NCI Lifetime model risk: 16.1%. Prior Study Comparison: 02/17/2023 Bilateral MG 3D screening mammo w/cad, [facility]. 02/22/2023 Left MG 3D work up w/cad LT, [facility]. 03/20/2024 Bilateral MG 3D screening mammo w/cad, [facility]. Tissue Density: There are scattered areas of fibroglandular density. Findings: Analyzed By CAD. There are a few tiny benign-appearing round calcifications bilaterally redemonstrated. There is no suspicious group of microcalcifications or new suspicious mass in either breast. Overall Assessment: Benign, BI-RAD 2 Management: Screening Mammogram of both breasts in 1 year. . Patient should continue monthly self-breast exams. A clinical breast exam by your physician is recommended on an annual basis. This exam should not preclude additional follow-up of suspicious palpable abnormalities. Note on Maryjane scores and lifetime risk: 1. A Maryjane score greater than 3% is considered moderate risk. If this is the case, consider specialist referral to assess eligibility for a risk reducing agent. 2. If overall lifetime risk for the development of breast cancer is 20% or higher, the patient may qualify for future screening with alternating mammogram and breast MRI. [facility], , 04/23/2025 11:39 AM. Electronically signed and approved by: Sujit Barahona M.D.
== END | disposition home or self-care (01) ==
LOC: RADMAMWWP 11:13
PROVIDERS: ATTEND Family Medicine
DX: Z12.31 Encounter for screening mammogram for malignant neoplasm of breast (principal); R92.323 Mammographic fibroglandular density, bilateral breasts; Z78.0 Asymptomatic menopausal state; Z80.3 Family history of malignant neoplasm of breast
CPT/HCPCS: 77063; 77067